=== PATIENT | female | born 1990 | race African-American/Black ===

== ENCOUNTER 2020-08-01 21:53 | Emergency (ER) | payer OTHER ==
[2020-08-01 22:16] VITALS: BP 127/82; PULSE 64; TEMP 98.7; BMI 36.0
[2020-08-01] MEDS ORDERED: MYCOPHENOLATE MOFETIL 250 MG CAPSULE PO ONE (23:45)
== END 2020-08-02 00:27 | disposition home or self-care (01) ==
LOC: JER 21:53
DX: Z76.0 Encounter for issue of repeat prescription (principal)
CPT/HCPCS: 99281-25